=== PATIENT | male | born 1950 | race Caucasian/White ===

== ENCOUNTER 2018-07-24 14:02 | Observation (INO) | payer MEDICARE ==
[~2018-07-24] VITALS: Ht 177.8 cm; Wt 104.3 kg
[~2018-07-24 14:02] MED LIST: ALBIPROI INH; ALBU8HFA2 INH; ASPI325 PO; ASPI81EC PO; ATECHL PO; ATEN50 PO; CHOL10002 PO; CLOP75 PO; COMBIVENT RESPIM4 GM IH; COMBIVENT RESPIM4 GM INH; CYCL10 PO; DICL75ER PO; DILT180ER PO; DOCSEN; DOCU100 PO; DOXA4 PO; FISH1000 PO; FLONASE ALLERG9.9 ML; Fish Oil 10001000 MG PO; GEMF600 PO; HYDACE10B; HYDACE5 PO; IBUP800 PO; ISOMON60ER PO; ISOPTIN PO; LAVAP17G; METO50 PO; METO50ER PO; NITR.4SL SL; Norco 10-325 T1 EACH PO; OMEG1CAP30 PO; OMEGA-3; POTA10T PO; PRAV20 PO; RANI150 PO; STATIN PO; TAMS.4ER PO; TERA5 PO; TIOT18 IH; VERA240ERA PO; WARF5 PO; ZYRTEC10 M2 PO
[2018-07-24 15:19] LABS: BASOPHILS ABSOLUTE AUTO 0.03 K/mm3 (0.00-0.23); BASOPHILS PERCENT AUTO 0 % (0-2); EOSINOPHILS ABSOLUTE AUTO 0.27 K/mm3 (0.00-0.68); EOSINOPHILS PERCENT AUTO 3 % (0-6); Hemoglobin 14.8 g/dL (13.5-17.5); IMMATURE GRAN ABSOLUTE AUTO 0.01 K/mm3 (0.00-0.10); IMMATURE GRAN PERCENT AUTO 0 % (0-1); LYMPHOCYTES ABSOLUTE AUTO 1.18 K/mm3 (0.84-5.20); LYMPHOCYTES PERCENT AUTO 13 % (21-46); MONOCYTES ABSOLUTE AUTO 0.61 K/mm3 (0.16-1.47); MONOCYTES PERCENT AUTO 7 % (4-13); Mean Corpuscular HGB 32.4 pg (26.0-34.0); Mean Corpuscular HGB Conc 33.6 g/dL (31.5-36.5); Mean Corpuscular Volume 96 fL (80-100); NEUTROPHILS ABSOLUTE AUTO 6.68 K/mm3 (1.96-9.15); NEUTROPHILS PERCENT AUTO 76 % (41-73); Platelet Count 161 K/mm3 (150-400); RDW Coefficient Variation 12.4 % (11.7-14.2); RDW Standard Deviation 43.9 fL (35.1-46.3); Red Blood Cell Count 4.57 M/mm3 (4.30-5.90); White Blood Cell Count 8.78 K/mm3 (4.00-11.30)
[2018-07-24 15:38] LABS: Alanine Aminotransfer (ALT/SGP 30 U/L (12-78); Albumin/Globulin Ratio 1.1 (0.8-1.8); Alk Phos 72 U/L (50-136); Anion Gap 6 mmol/L (6-16); Aspartate Aminotrans (AST/SGOT 23 U/L (12-37); Bilirubin, Total 0.8 mg/dL (0.1-1.0); Blood Urea Nitrogen 11 mg/dL (8-24); Bun/Creatinine Ratio 15.9 (12.0-20.0); CO2, Blood 29 mmol/L (21-32); Calcium, Blood 8.9 mg/dL (8.5-10.1); Chloride, Blood 102 mmol/L (98-108); Creatinine, Blood 0.69 mg/dL (0.60-1.20); Globulin, Blood 3.5 g/dL (2.2-4.0); Glomerular Filtration Rate >60 (60-); Glucose, Blood 94 mg/dL (70-99); Potassium, Blood 3.6 mmol/L (3.5-5.5); Sodium, Blood 137 mmol/L (136-145); Total Protein, Blood 7.5 g/dL (6.4-8.2); Troponin I <0.015 ng/mL (0.000-0.040)
[2018-07-24 16:32] LABS: Influenza A Negative (NEGATIVE); Influenza B Negative (NEGATIVE)
[2018-07-24 16:39] LABS: PCO2 Arterial 38.4 mmHg (35-45); PO2 Arterial 64.2 mmHg (80-100); pH Blood Arterial 7.46 (7.35-7.45)
[2018-07-24 17:37] LABS: International Normalized Ratio 4.44
[2018-07-25 05:51] LABS: BASOPHILS PERCENT AUTO 0 % (0-2); EOSINOPHILS PERCENT AUTO 0 % (0-6); Hematocrit 45.2 % (37.0-53.0); Hemoglobin 14.8 g/dL (13.5-17.5); IMMATURE GRAN ABSOLUTE AUTO 0.02 K/mm3 (0.00-0.10); IMMATURE GRAN PERCENT AUTO 0 % (0-1); LYMPHOCYTES ABSOLUTE AUTO 0.66 K/mm3 (0.84-5.20); LYMPHOCYTES PERCENT AUTO 11 % (21-46); MONOCYTES PERCENT AUTO 2 % (4-13); Mean Corpuscular HGB Conc 32.7 g/dL (31.5-36.5); Mean Corpuscular Volume 98 fL (80-100); Mean Platelet Volume 8.7 fL (9.1-12.4); NEUTROPHILS ABSOLUTE AUTO 5.49 K/mm3 (1.96-9.15); NEUTROPHILS PERCENT AUTO 88 % (41-73); Platelet Count 178 K/mm3 (150-400); RDW Coefficient Variation 12.4 % (11.7-14.2); RDW Standard Deviation 44.6 fL (35.1-46.3); Red Blood Cell Count 4.62 M/mm3 (4.30-5.90); White Blood Cell Count 6.27 K/mm3 (4.00-11.30)
[2018-07-25 06:11] LABS: Alanine Aminotransfer (ALT/SGP 26 U/L (12-78); Albumin, Blood 3.8 g/dL (3.4-5.0); Alk Phos 71 U/L (50-136); Anion Gap 7 mmol/L (6-16); Aspartate Aminotrans (AST/SGOT 20 U/L (12-37); Bilirubin, Total 0.5 mg/dL (0.1-1.0); Blood Urea Nitrogen 12 mg/dL (8-24); Bun/Creatinine Ratio 20.1 (12.0-20.0); CO2, Blood 28 mmol/L (21-32); Calcium, Blood 8.9 mg/dL (8.5-10.1); Chloride, Blood 106 mmol/L (98-108); Globulin, Blood 3.8 g/dL (2.2-4.0); Glomerular Filtration Rate >60 (60-); Glucose, Blood 157 mg/dL (70-99); Potassium, Blood 3.9 mmol/L (3.5-5.5); Sodium, Blood 141 mmol/L (136-145); Total Protein, Blood 7.6 g/dL (6.4-8.2)
[2018-07-25] MEDS ORDERED: ALBU90OI INH (11:49)
[2018-07-25] MEDS ORDERED: CEPH500 PO (11:57)
[2018-07-25] MEDS ORDERED: ONDA4ODT SC (11:58)
[2018-07-25] MEDS ORDERED: AZIT250 PO (11:59)
[2018-07-25 12:00] LABS: International Normalized Ratio 2.79; Prothrombin Time Results 27.1 Sec (9.7-11.5)
[2018-07-25] MEDS ORDERED: PRED20 PO (12:00)
== END 2018-07-25 14:13 | disposition home or self-care (01) ==
LOC: ER 14:02 → MEDS 14:03
PROVIDERS: Emergency Medicine; Family Medicine
DX: J96.21 Acute and chronic respiratory failure with hypoxia (principal); J44.1 Chronic obstructive pulmonary disease with (acute) exacerbation; I25.10 Atherosclerotic heart disease of native coronary artery without angina pectoris; I10 Essential (primary) hypertension; S69.92XD Unspecified injury of left wrist, hand and finger(s), subsequent encounter; K21.9 Gastro-esophageal reflux disease without esophagitis; N40.0 Benign prostatic hyperplasia without lower urinary tract symptoms; J44.9 Chronic obstructive pulmonary disease, unspecified; Z88.5 Allergy status to narcotic agent; Z88.8 Allergy status to other drugs, medicaments and biological substances; Z88.0 Allergy status to penicillin; Z79.899 Other long term (current) drug therapy; Z79.01 Long term (current) use of anticoagulants; Z95.1 Presence of aortocoronary bypass graft; Z95.2 Presence of prosthetic heart valve; Z87.891 Personal history of nicotine dependence
CPT/HCPCS: 36415; 36600; 71046; 71260; 76882; 80053; 82803; 83880; 84484; 85025; 85610; 87804; 93005; 93010; 94640; 94644; 94760; 96374; 99285-25; J0456; J0696; J2920; J2930; J7050; Q9967

== ENCOUNTER 2018-12-24 08:55 | Day surgery (SDC) | payer OTHER ==
[~2018-12-24] VITALS: Ht 177.8 cm; Wt 106.1 kg
[~2018-12-24 08:55] MED LIST changes: +ALBU90OI INH; +AMMONIUM LACTATE1 ML TOP; +ARTIFICIAL TEAR15 ML BOTHEYES; +ASPI325EC PO; +AZIT250 PO; +CEPH500 PO; +FISH OIL 1,0001 EAC1 PO; +Flonase 0.05% N16 GM; +Isosorbide Mono60 MG PO; +Nitrostat0.4 MG SL; +ONDA4ODT SC; +POTCHL20ER PO; +PRED20 PO; +Ranitidine HCl150 M1 PO; +VERA180ERB PO; +VITAMIN D31000 UNIT PO; +WARF7.5 PO; +ZYRTEC10 M1 PO
== END 2018-12-24 10:42 | disposition home or self-care (01) ==
LOC: ORSCSDS 08:55
PROVIDERS: Internal Medicine Gastroenterology
PROC: 0DBN8ZX Excision of Sigmoid Colon, Via Natural or Artificial Opening Endoscopic, Diagnostic (ICD-10-PCS; principal; 2018-12-24 10:00)
PROC: 0DBL8ZX Excision of Transverse Colon, Via Natural or Artificial Opening Endoscopic, Diagnostic (ICD-10-PCS; principal; 2018-12-24 10:00)
DX: Z12.11 Encounter for screening for malignant neoplasm of colon (principal); Z86.010 Personal history of colon polyps; D12.3 Benign neoplasm of transverse colon; D12.5 Benign neoplasm of sigmoid colon; K57.30 Diverticulosis of large intestine without perforation or abscess without bleeding; K64.8 Other hemorrhoids; I25.10 Atherosclerotic heart disease of native coronary artery without angina pectoris; I48.91 Unspecified atrial fibrillation; Z79.01 Long term (current) use of anticoagulants; Z79.899 Other long term (current) drug therapy; G47.33 Obstructive sleep apnea (adult) (pediatric); J44.9 Chronic obstructive pulmonary disease, unspecified; Z87.891 Personal history of nicotine dependence; E66.9 Obesity, unspecified; Z68.34 Body mass index [BMI] 34.0-34.9, adult; Z79.82 Long term (current) use of aspirin
CPT/HCPCS: 88305; J7120

== ENCOUNTER 2020-03-02 09:55 | Emergency (ER) | payer OTHER ==
[~2020-03-02] VITALS: Ht 177.8 cm; Wt 99.8 kg
[2020-03-02] MEDS ORDERED: ZYRTEC10 M2 PO (10:23)
[2020-03-02 10:24] LABS: BASOPHILS ABSOLUTE AUTO 0.03 K/mm3 (0.00-0.23); BASOPHILS PERCENT AUTO 0 % (0-2); EOSINOPHILS ABSOLUTE AUTO 0.16 K/mm3 (0.00-0.68); EOSINOPHILS PERCENT AUTO 2 % (0-6); Hematocrit 42.2 % (37.0-53.0); Hemoglobin 13.9 g/dL (13.5-17.5); IMMATURE GRAN ABSOLUTE AUTO 0.02 K/mm3 (0.00-0.10); IMMATURE GRAN PERCENT AUTO 0 % (0-1); LYMPHOCYTES ABSOLUTE AUTO 1.64 K/mm3 (0.84-5.20); LYMPHOCYTES PERCENT AUTO 22 % (21-46); MONOCYTES ABSOLUTE AUTO 0.45 K/mm3 (0.16-1.47); MONOCYTES PERCENT AUTO 6 % (4-13); Mean Corpuscular HGB 32.2 pg (26.0-34.0); Mean Corpuscular HGB Conc 32.9 g/dL (31.5-36.5); Mean Corpuscular Volume 98 fL (80-100); Mean Platelet Volume 8.7 fL (9.1-12.4); NEUTROPHILS ABSOLUTE AUTO 5.14 K/mm3 (1.96-9.15); NEUTROPHILS PERCENT AUTO 69 % (41-73); Platelet Count 168 K/mm3 (150-400); RDW Coefficient Variation 12.5 % (11.7-14.2); RDW Standard Deviation 44.9 fL (35.1-46.3); Red Blood Cell Count 4.32 M/mm3 (4.30-5.90); White Blood Cell Count 7.44 K/mm3 (4.00-11.30)
[2020-03-02] MEDS ORDERED: Norco 10-325 T1 EACH PO (10:24)
[2020-03-02] MEDS ORDERED: TAMS.4ER PO (10:24)
[2020-03-02] MEDS ORDERED: WARF5 PO (10:26)
[2020-03-02] MEDS ORDERED: DOCU100 PO (10:27)
[2020-03-02] MEDS ORDERED: Duoneb 2.5-0.5 M3 ML (10:27)
[2020-03-02] MEDS ORDERED: Fish Oil Conc1000 MG PO (10:28)
[2020-03-02] MEDS ORDERED: MONT10T PO (10:29)
[2020-03-02] MEDS ORDERED: METO25 PO (10:29)
[2020-03-02] MEDS ORDERED: Flonase 0.05% N16 GM (10:29)
[2020-03-02] MEDS ORDERED: NITR.4SL SL (10:29)
[2020-03-02 10:30] LABS: International Normalized Ratio 2.35
[2020-03-02] MEDS ORDERED: FAMO40 PO (10:30)
[2020-03-02] MEDS ORDERED: NEOPOLBACB TOP (10:30)
[2020-03-02] MEDS ORDERED: AMMONIUM LACTATE (10:31)
[2020-03-02] MEDS ORDERED: ISOMON20 PO (10:31)
[2020-03-02] MEDS ORDERED: VITAMIN D31000 UNI1 PO (10:34)
[2020-03-02] MEDS ORDERED: VERA180ERB PO (10:35)
[2020-03-02] MEDS ORDERED: SYSTANE GEL10 GM BOTHEYES (10:35)
[2020-03-02] MEDS ORDERED: [UNRECOGNIZED DRUG - CODE] (10:35)
[2020-03-02 10:37] LABS: Alanine Aminotransfer (ALT/SGP 31 U/L (12-78); Albumin, Blood 3.7 g/dL (3.4-5.0); Albumin/Globulin Ratio 1.2 (0.8-1.8); Alk Phos 59 U/L (50-136); Anion Gap 9 mmol/L (6-16); Aspartate Aminotrans (AST/SGOT 23 U/L (12-37); Bilirubin, Total 0.3 mg/dL (0.1-1.0); Blood Urea Nitrogen 16 mg/dL (8-24); Bun/Creatinine Ratio 20.9 (12.0-20.0); CO2, Blood 26 mmol/L (21-32); Calcium, Blood 8.6 mg/dL (8.5-10.1); Chloride, Blood 105 mmol/L (98-108); Creatinine, Blood 0.76 mg/dL (0.60-1.20); Globulin, Blood 3.2 g/dL (2.2-4.0); Glomerular Filtration Rate >60 (60-); Glucose, Blood 125 mg/dL (70-99); Potassium, Blood 3.9 mmol/L (3.5-5.5); Sodium, Blood 140 mmol/L (136-145); Total Protein, Blood 6.9 g/dL (6.4-8.2); Troponin I <0.015 ng/mL (0.000-0.040)
== END 2020-03-02 15:03 | disposition home or self-care (01) ==
LOC: ER 09:55
PROVIDERS: Emergency Medicine
DX: R07.9 Chest pain, unspecified (principal); R55 Syncope and collapse; I25.2 Old myocardial infarction; I10 Essential (primary) hypertension; Z87.891 Personal history of nicotine dependence
CPT/HCPCS: 71045; 80053; 83690; 84484; 85025; 85610; 93005; 93010; 99285-25; A9270

== ENCOUNTER 2022-04-22 12:51 | Emergency (ER) | payer OTHER ==
[~2022-04-22] VITALS: Ht 177.8 cm; Wt 113.4 kg
[~2022-04-22 12:51] MED LIST changes: +AMMONIUM LACTATE; +Duoneb 2.5-0.5 M3 ML; +FAMO40 PO; +Fish Oil Conc1000 MG PO; +ISOMON20 PO; +METO25 PO; +MONT10T PO; +NEOPOLBACB TOP; +SYSTANE GEL10 GM BOTHEYES; +VITAMIN D31000 UNI1 PO; +[UNRECOGNIZED DRUG - CODE]
[2022-04-22 13:39] LABS: BASOPHILS ABSOLUTE AUTO 0.03 K/mm3 (0.00-0.23); BASOPHILS PERCENT AUTO 1 % (0-2); EOSINOPHILS ABSOLUTE AUTO 0.29 K/mm3 (0.00-0.68); EOSINOPHILS PERCENT AUTO 5 % (0-6); Hematocrit 42.3 % (37.0-53.0); Hemoglobin 14.2 g/dL (13.5-17.5); IMMATURE GRAN ABSOLUTE AUTO 0.02 K/mm3 (0.00-0.10); IMMATURE GRAN PERCENT AUTO 0 % (0-1); LYMPHOCYTES PERCENT AUTO 19 % (21-46); MONOCYTES ABSOLUTE AUTO 0.56 K/mm3 (0.16-1.47); MONOCYTES PERCENT AUTO 9 % (4-13); Mean Corpuscular HGB 33.2 pg (26.0-34.0); Mean Corpuscular HGB Conc 33.6 g/dL (31.5-36.5); Mean Corpuscular Volume 99 fL (80-100); Mean Platelet Volume 8.9 fL (9.1-12.4); NEUTROPHILS ABSOLUTE AUTO 4.34 K/mm3 (1.96-9.15); NEUTROPHILS PERCENT AUTO 67 % (41-73); Platelet Count 145 K/mm3 (150-400); RDW Coefficient Variation 13.1 % (11.7-14.2); RDW Standard Deviation 46.9 fL (35.1-46.3); Red Blood Cell Count 4.28 M/mm3 (4.30-5.90); White Blood Cell Count 6.44 K/mm3 (4.00-11.30)
[2022-04-22 13:40] LABS: Albumin, Blood 3.6 g/dL (3.4-5.0); Albumin/Globulin Ratio 1.1 (0.8-1.8); Bilirubin, Total 0.5 mg/dL (0.1-1.0); Bun/Creatinine Ratio 15.4 (12.0-20.0); Calcium, Blood 9.2 mg/dL (8.5-10.1); Creatinine, Blood 0.65 mg/dL (0.60-1.20); Globulin, Blood 3.3 g/dL (2.2-4.0); Potassium, Blood 3.9 mmol/L (3.5-5.5); Total Protein, Blood 6.9 g/dL (6.4-8.2)
[2022-04-22] MEDS ORDERED: PRED10 PO (14:35)
== END 2022-04-22 14:51 | disposition home or self-care (01) ==
LOC: ER 12:51
PROVIDERS: Emergency Medicine
DX: R21 Rash and other nonspecific skin eruption (principal); I25.10 Atherosclerotic heart disease of native coronary artery without angina pectoris; I10 Essential (primary) hypertension; K21.9 Gastro-esophageal reflux disease without esophagitis; I25.2 Old myocardial infarction; J44.9 Chronic obstructive pulmonary disease, unspecified; Z79.01 Long term (current) use of anticoagulants; Z95.1 Presence of aortocoronary bypass graft; Z79.899 Other long term (current) drug therapy; Z88.8 Allergy status to other drugs, medicaments and biological substances; Z88.6 Allergy status to analgesic agent; Z88.5 Allergy status to narcotic agent; Z88.0 Allergy status to penicillin; Z91.013 Allergy to seafood
CPT/HCPCS: 80053; 85025; J7512

== ENCOUNTER 2022-06-23 11:19 | Observation (INO) | payer OTHER ==
[~2022-06-23] VITALS: Ht 182.9 cm; Wt 118.3 kg
[~2022-06-23 11:19] MED LIST changes: +PRED10 PO
[2022-06-23 11:50] LABS: BASOPHILS ABSOLUTE AUTO 0.03 K/mm3 (0.00-0.23); BASOPHILS PERCENT AUTO 0 % (0-2); EOSINOPHILS PERCENT AUTO 3 % (0-6); Hematocrit 43.9 % (37.0-53.0); Hemoglobin 14.2 g/dL (13.5-17.5); IMMATURE GRAN ABSOLUTE AUTO 0.02 K/mm3 (0.00-0.10); IMMATURE GRAN PERCENT AUTO 0 % (0-1); LYMPHOCYTES ABSOLUTE AUTO 1.47 K/mm3 (0.84-5.20); LYMPHOCYTES PERCENT AUTO 19 % (21-46); MONOCYTES ABSOLUTE AUTO 0.63 K/mm3 (0.16-1.47); MONOCYTES PERCENT AUTO 8 % (4-13); Mean Corpuscular HGB 31.9 pg (26.0-34.0); Mean Corpuscular HGB Conc 32.3 g/dL (31.5-36.5); Mean Corpuscular Volume 99 fL (80-100); Mean Platelet Volume 8.7 fL (9.1-12.4); NEUTROPHILS ABSOLUTE AUTO 5.35 K/mm3 (1.96-9.15); NEUTROPHILS PERCENT AUTO 69 % (41-73); Platelet Count 147 K/mm3 (150-400); RDW Coefficient Variation 13.1 % (11.7-14.2); RDW Standard Deviation 47.4 fL (35.1-46.3); Red Blood Cell Count 4.45 M/mm3 (4.30-5.90)
[2022-06-23 12:11] LABS: Albumin, Blood 3.5 g/dL (3.4-5.0); Bilirubin, Total 0.4 mg/dL (0.1-1.0); Bun/Creatinine Ratio 17.3 (12.0-20.0); Calcium, Blood 9.2 mg/dL (8.5-10.1); Creatinine, Blood 0.81 mg/dL (0.60-1.20); Globulin, Blood 3.4 g/dL (2.2-4.0); Potassium, Blood 4.1 mmol/L (3.5-5.5); Total Protein, Blood 6.9 g/dL (6.4-8.2)
[2022-06-23 14:15] LABS: International Normalized Ratio 3.94; Prothrombin Time Results 37.8 Sec (9.7-11.5)
[2022-06-23] MEDS ORDERED: LORA10ER PO (17:47)
[2022-06-23] MEDS ORDERED: CYCL10 PO (17:48)
[2022-06-23] MEDS ORDERED: COMBIVENT RESPIM4 G1 INH (17:50)
--- NOTE | 2022-06-23 17:52 | NUR ---
REPORT RECEIVED FROM ED PARKS IN ER. PT TRANSFERRED TO 334 VIA . PT A/O X 4 ON ARRIVAL AND T IND WITH CANE TO BED. PT PLEASANT AND COOPERATIVE. DENIES CP AT THIS TIME. SOMEWHAT SOB WITH VERBALIZING. PT DENIES PAIN/NAUSEA AT THIS TIME. TELE PLACED AND NSR AT 70 AT THIS TIME. BED IN LOW POSITION, CALL LIGHT IN REACH.
--- NOTE | 2022-06-24 04:54 | NUR ---
SHIFT SUMMARY A/OX4, IND IN ROOM. DENIES CHEST PAIN/PRESSURE. TELE SR IN THE 70S. PT IS CAREGIVER TO WHO HAS BEEN BEDSIDE T/O SHIFT. NO ACUTE CHANGES AT THIS TIME. BED IN LOWEST POSITION WITH CALL LIGHT IN REACH. WILL CONTINUE TO MONITOR AND REPORT TO ONCOMING RN.
[2022-06-24 05:26] LABS: BASOPHILS ABSOLUTE AUTO 0.03 K/mm3 (0.00-0.23); BASOPHILS PERCENT AUTO 1 % (0-2); EOSINOPHILS ABSOLUTE AUTO 0.27 K/mm3 (0.00-0.68); EOSINOPHILS PERCENT AUTO 5 % (0-6); Hematocrit 41.2 % (37.0-53.0); Hemoglobin 13.4 g/dL (13.5-17.5); IMMATURE GRAN ABSOLUTE AUTO 0.02 K/mm3 (0.00-0.10); IMMATURE GRAN PERCENT AUTO 0 % (0-1); LYMPHOCYTES ABSOLUTE AUTO 1.51 K/mm3 (0.84-5.20); LYMPHOCYTES PERCENT AUTO 27 % (21-46); MONOCYTES ABSOLUTE AUTO 0.44 K/mm3 (0.16-1.47); MONOCYTES PERCENT AUTO 8 % (4-13); Mean Corpuscular HGB 32.2 pg (26.0-34.0); Mean Corpuscular HGB Conc 32.5 g/dL (31.5-36.5); Mean Corpuscular Volume 99 fL (80-100); Mean Platelet Volume 8.8 fL (9.1-12.4); NEUTROPHILS ABSOLUTE AUTO 3.26 K/mm3 (1.96-9.15); NEUTROPHILS PERCENT AUTO 59 % (41-73); Platelet Count 139 K/mm3 (150-400); RDW Coefficient Variation 12.9 % (11.7-14.2); RDW Standard Deviation 47.4 fL (35.1-46.3); Red Blood Cell Count 4.16 M/mm3 (4.30-5.90); White Blood Cell Count 5.53 K/mm3 (4.00-11.30)
[2022-06-24 05:41] LABS: Prothrombin Time Results 29.3 Sec (9.7-11.5)
[2022-06-24 05:48] LABS: Anion Gap 8 mmol/L (6-16); Blood Urea Nitrogen 12 mg/dL (8-24); Bun/Creatinine Ratio 17.6 (12.0-20.0); CO2, Blood 26 mmol/L (21-32); Calcium, Blood 8.4 mg/dL (8.5-10.1); Chloride, Blood 107 mmol/L (98-108); Creatinine, Blood 0.68 mg/dL (0.60-1.20); Glomerular Filtration Rate 98 (60-); Glucose, Blood 116 mg/dL (70-99); Phosphorus, Blood 3.5 mg/dL (2.5-4.9); Potassium, Blood 3.8 mmol/L (3.5-5.5); Sodium, Blood 141 mmol/L (136-145)
[2022-06-24] MEDS ORDERED: CLOP75 PO (10:39)
--- NOTE | 2022-06-24 15:25 | NUR ---
discharge notes: pt discharged from tele. pt educated on following up with [facility], primary pcp, and establishing as a new patient with [facility]. pt educated on angina pain, heart healthy diet, and CVD. pt iv was removed with increased bleeding due to taking coumadin. pt was escorted with wheelchair and transported by [facility] to the [place].
== END 2022-06-24 14:37 | disposition home or self-care (01) ==
LOC: ER 11:19 → MEDS 11:20
PROVIDERS: Student in an Organized Health Care Education/Training Program; ADMIT Internal Medicine
DX: I25.118 Atherosclerotic heart disease of native coronary artery with other forms of angina pectoris (principal); J44.9 Chronic obstructive pulmonary disease, unspecified; I10 Essential (primary) hypertension; K21.9 Gastro-esophageal reflux disease without esophagitis; Z87.891 Personal history of nicotine dependence; Z95.1 Presence of aortocoronary bypass graft; Z91.013 Allergy to seafood; Z95.2 Presence of prosthetic heart valve; Z88.0 Allergy status to penicillin; Z88.5 Allergy status to narcotic agent; Z88.8 Allergy status to other drugs, medicaments and biological substances; Z79.01 Long term (current) use of anticoagulants; Z79.899 Other long term (current) drug therapy
CPT/HCPCS: 36415; 71046; 80053; 80069; 83690; 84484; 85025; 85610; 93005; 93010; 94667; 98960; A9270; G0378

== ENCOUNTER 2022-09-25 17:12 | Inpatient (IN) | payer OTHER ==
[~2022-09-25] VITALS: Ht 177.8 cm; Wt 116.8 kg
[~2022-09-25 17:12] MED LIST changes: +COMBIVENT RESPIM4 G1 INH; -ISOMON20 PO; +Isosorbide Mono30 MG PO; +LORA10ER PO
[2022-09-25 18:03] LABS: BASOPHILS ABSOLUTE AUTO 0.02 K/mm3 (0.00-0.23); BASOPHILS PERCENT AUTO 0 % (0-2); EOSINOPHILS ABSOLUTE AUTO 0.18 K/mm3 (0.00-0.68); EOSINOPHILS PERCENT AUTO 3 % (0-6); Hematocrit 42.8 % (37.0-53.0); Hemoglobin 14.7 g/dL (13.5-17.5); IMMATURE GRAN ABSOLUTE AUTO 0.02 K/mm3 (0.00-0.10); IMMATURE GRAN PERCENT AUTO 0 % (0-1); LYMPHOCYTES ABSOLUTE AUTO 1.69 K/mm3 (0.84-5.20); LYMPHOCYTES PERCENT AUTO 24 % (21-46); MONOCYTES ABSOLUTE AUTO 0.65 K/mm3 (0.16-1.47); MONOCYTES PERCENT AUTO 9 % (4-13); Mean Corpuscular HGB 32.3 pg (26.0-34.0); Mean Corpuscular HGB Conc 34.3 g/dL (31.5-36.5); Mean Corpuscular Volume 94 fL (80-100); Mean Platelet Volume 8.6 fL (9.1-12.4); NEUTROPHILS ABSOLUTE AUTO 4.43 K/mm3 (1.96-9.15); NEUTROPHILS PERCENT AUTO 63 % (41-73); Platelet Count 174 K/mm3 (150-400); RDW Coefficient Variation 13.3 % (11.7-14.2); RDW Standard Deviation 46.5 fL (35.1-46.3); Red Blood Cell Count 4.55 M/mm3 (4.30-5.90); White Blood Cell Count 6.99 K/mm3 (4.00-11.30)
[2022-09-25 18:26] LABS: Albumin, Blood 3.6 g/dL (3.4-5.0); Albumin/Globulin Ratio 1.1 (0.8-1.8); Bilirubin, Total 0.3 mg/dL (0.1-1.0); Bun/Creatinine Ratio 18.9 (12.0-20.0); Calcium, Blood 8.6 mg/dL (8.5-10.1); Creatinine, Blood 0.74 mg/dL (0.60-1.20); Globulin, Blood 3.2 g/dL (2.2-4.0); Potassium, Blood 3.7 mmol/L (3.5-5.5); Total Protein, Blood 6.8 g/dL (6.4-8.2)
[2022-09-25] MEDS ORDERED: DILT120 PO (18:47)
[2022-09-25] MEDS ORDERED: OMEP20ER PO (18:47)
[2022-09-25 19:43] LABS: International Normalized Ratio 1.48; Prothrombin Time Results 15.1 Sec (9.7-11.5)
--- NOTE | 2022-09-26 03:30 | NUR ---
SHIFT SUMMARY NOC PT ADMIT FROM ED WITH ANGINA AT REST. PT LAST TROPONIN WAS 51. PT BP HAS BEEN ELEVATED BUT IS CONSIDERED BASELINE. PT ATPP WAS 41.5. BNP WAS 269. PT HAS IV IN R WRIST THAT IS INFUSING HEPARIN DRIP AT 27.6ML/HR. PT A/OX4. INDEPENDENT IN ROOM AND HAS CANE FOR ADDITIONAL SUPPORT IF NEEDED. PT IS ON TELE RUNNING SR WITH PROLONGED QT INTERVAL OF 0.51 AND HR OF 70BPM. PT HAS BLLE EDEMA 2+ AND HAS GAINED 17LBS IN LAST 2 MONTHS. IS [facility]. PT HAS EXTENSIVE CARDIAC HX (CHECK NOTES). PT IS CONTINENT GI/. PT IS CURRENTLY RESTING WITH BED RAILS UP, BED IN LOWEST POSITION, AND CALL LIGHT WITHIN REACH.
[2022-09-26 04:44] LABS: Hematocrit 42.2 % (37.0-53.0); Hemoglobin 14.1 g/dL (13.5-17.5); Mean Platelet Volume 8.6 fL (9.1-12.4); Platelet Count 155 K/mm3 (150-400)
[2022-09-26 05:26] LABS: Albumin, Blood 3.3 g/dL (3.4-5.0); Albumin/Globulin Ratio 1.1 (0.8-1.8); Bilirubin, Total 0.4 mg/dL (0.1-1.0); Bun/Creatinine Ratio 19.1 (12.0-20.0); Calcium, Blood 8.4 mg/dL (8.5-10.1); Creatinine, Blood 0.68 mg/dL (0.60-1.20); Potassium, Blood 3.5 mmol/L (3.5-5.5); Total Protein, Blood 6.3 g/dL (6.4-8.2)
[2022-09-26 14:00] LABS: International Normalized Ratio 1.27; Prothrombin Time Results 13.1 Sec (9.7-11.5)
--- NOTE | 2022-09-26 18:47 | NUR ---
SHIFT SUMMARY PT A/O X4; PLEASANT AND COOPERATIVE WITH CARE. NO REPORTS OF CP THIS SHIFT. PT REMAINS ON HEPARIN DRIP AT THIS TIME. PT NPO AFTER MIDNIGHT IN CASE OF ANGIOGRAM. ANGIOGRAM VS GOING HOME ON ANTICOAGULANTS AND FOLLOWING UP OUTPATIENT. VSS.
--- NOTE | 2022-09-27 04:43 | NUR ---
SHIFT SUMMARY; NO ACUTE CHANGES OVERNIGHT. PT RESTED IN BED ALL NIGHT, NO SOB OR CHEST PAIN. PT USED BED SIDE URINAL THROUGHOUT THE NIGHT. PT WITH HEPARIN DRIP CURRENTLY RUNNING AT 27.6ML/HR. PT CURRENTLY RESTING IN BED WITH THE BED IN THE LOWEST POSITION AND THE CALL LIGHT AT BEDSIDE. STRESS TEST THIS AM WITH POSSIBLE ANGIOGRAM DEPENDING ON RESULTS.
[2022-09-27 05:06] LABS: Hematocrit 42.4 % (37.0-53.0); Hemoglobin 14.5 g/dL (13.5-17.5); Mean Corpuscular HGB Conc 34.2 g/dL (31.5-36.5); Mean Corpuscular Volume 96 fL (80-100); Mean Platelet Volume 8.5 fL (9.1-12.4); Platelet Count 156 K/mm3 (150-400); RDW Coefficient Variation 13.3 % (11.7-14.2); RDW Standard Deviation 46.8 fL (35.1-46.3); White Blood Cell Count 6.58 K/mm3 (4.00-11.30)
[2022-09-27 05:23] LABS: Anti-Xa UFH, PHA Monitoring 0.29 IU/mL; International Normalized Ratio 1.23; Prothrombin Time Results 12.7 Sec (9.7-11.5)
[2022-09-27 05:37] LABS: Albumin, Blood 3.3 g/dL (3.4-5.0); Anion Gap 5 mmol/L (6-16); Blood Urea Nitrogen 14 mg/dL (8-24); Bun/Creatinine Ratio 18.8 (12.0-20.0); CHOL/HDL RATIO 7.5; CO2, Blood 29 mmol/L (21-32); Calcium, Blood 8.6 mg/dL (8.5-10.1); Chloride, Blood 106 mmol/L (98-108); Cholesterol 233 mg/dL (50-200); Creatinine, Blood 0.74 mg/dL (0.60-1.20); Glomerular Filtration Rate 95 (60-); Glucose, Blood 116 mg/dL (70-99); HDL Cholesterol 31 mg/dL (>39); LDL/HDL RATIO 4.5; Low Density Lipoprotein Chol 139 mg/dL (0-110); Phosphorus, Blood 3.1 mg/dL (2.5-4.9); Potassium, Blood 3.6 mmol/L (3.5-5.5); Sodium, Blood 140 mmol/L (136-145); Triglycerides 313 mg/dL (30-160); Very Low Density Lipoprot Chol 62 mg/dL (6-32)
--- NOTE | 2022-09-27 12:00 | NUR ---
SPOKE TO DR. WEBBER BY PHONE AT ~ 1045, ASKED FOR CLARIFICATION OF PLAN FOR PT. HE AMBULATED ~ 75 FEET IN HALLWAY WITHOUT EXERTIONAL CP OR SOB, DENIED DIZZINESS. HAS NO ACTIVE ORDER FOR A STRESS TEST TODAY. PROVIDER STATED OK TO D/C HEPARIN GTT, OK TO D/C FROM HER PERSPECTIVE BUT PT NEEDS TO F/U WITH CARDIOLOGY AT APPOINTMENT ON 10/07/22.
[2022-09-27] MEDS ORDERED: Aspir 8181 MG PO (13:07)
[2022-09-27] MEDS ORDERED: ATOR80 PO (13:07)
[2022-09-27] MEDS ORDERED: LOSA25 PO (13:08)
[2022-09-27] MEDS ORDERED: FURO20 PO (13:10)
[2022-09-27] MEDS ORDERED: METO25 PO (13:10)
--- NOTE | 2022-09-27 13:32 | NUR ---
DISCHARGE NOTE PT DISCHARGED TO HOME VIA TAXI TODAY AROUND 1330. IV WAS REMOVED AND IT WAS ALL INTACT. HE WAS PROVIDED DISCHARGE EDUCATIONS AND MEDICATIONS WERE FAXED TO THE PHARMACY OF HIS CHOICE. ALL OF HIS BELONGINGS WERE ACCOUNTED FOR AND GIVEN TO HIM. TAKEN TO HIS TAXI BY WHEELCHAIR.
== END 2022-09-27 13:25 | disposition home or self-care (01) | DRG 303 ==
LOC: ER 17:12 → MEDS 17:13
PROVIDERS: Family Medicine; Internal Medicine; Physician Assistant; ADMIT Student in an Organized Health Care Education/Training Program
DX: I25.110 Atherosclerotic heart disease of native coronary artery with unstable angina pectoris (principal); I50.32 Chronic diastolic (congestive) heart failure; Z79.01 Long term (current) use of anticoagulants; Z95.2 Presence of prosthetic heart valve; I48.0 Paroxysmal atrial fibrillation; J44.9 Chronic obstructive pulmonary disease, unspecified; K21.9 Gastro-esophageal reflux disease without esophagitis; N40.0 Benign prostatic hyperplasia without lower urinary tract symptoms; Z95.1 Presence of aortocoronary bypass graft; Z95.5 Presence of coronary angioplasty implant and graft; Z87.891 Personal history of nicotine dependence; Z88.8 Allergy status to other drugs, medicaments and biological substances; Z88.0 Allergy status to penicillin; Z79.899 Other long term (current) drug therapy; Z79.02 Long term (current) use of antithrombotics/antiplatelets; Z23 Encounter for immunization
CPT/HCPCS: 36415; 71045; 80053; 80061; 80069; 83880; 84484; 85014; 85018; 85025; 85027; 85049; 85520; 85610; 90686; 93005; 93010; 93306; 96372; 96374; 96375; 96376; A9270; C9113; G0008; G0378; J1644; J1940

== ENCOUNTER 2022-12-17 10:49 | Observation (INO) | payer OTHER ==
[~2022-12-17] VITALS: Ht 177.8 cm; Wt 120.2 kg
[~2022-12-17 10:49] MED LIST changes: +ATOR80 PO; +Aspir 8181 MG PO; +COMBIVENT RESPIM4 G1; +DILT120 PO; +FISH OIL 1,2001 EAC7; +FURO20 PO; +LOSA25 PO; +OMEP20ER PO; +VERA180ER PO
[2022-12-17 11:21] LABS: BASOPHILS ABSOLUTE AUTO 0.04 K/mm3 (0.00-0.23); BASOPHILS PERCENT AUTO 1 % (0-2); EOSINOPHILS ABSOLUTE AUTO 0.16 K/mm3 (0.00-0.68); EOSINOPHILS PERCENT AUTO 2 % (0-6); Hematocrit 39.9 % (37.0-53.0); IMMATURE GRAN ABSOLUTE AUTO 0.03 K/mm3 (0.00-0.10); IMMATURE GRAN PERCENT AUTO 0 % (0-1); LYMPHOCYTES ABSOLUTE AUTO 1.89 K/mm3 (0.84-5.20); LYMPHOCYTES PERCENT AUTO 22 % (21-46); MONOCYTES ABSOLUTE AUTO 0.73 K/mm3 (0.16-1.47); MONOCYTES PERCENT AUTO 8 % (4-13); Mean Corpuscular HGB 32.8 pg (26.0-34.0); Mean Corpuscular HGB Conc 35.1 g/dL (31.5-36.5); Mean Corpuscular Volume 93 fL (80-100); Mean Platelet Volume 8.5 fL (9.1-12.4); NEUTROPHILS ABSOLUTE AUTO 5.93 K/mm3 (1.96-9.15); NEUTROPHILS PERCENT AUTO 68 % (41-73); Platelet Count 167 K/mm3 (150-400); RDW Coefficient Variation 13.1 % (11.7-14.2); RDW Standard Deviation 44.7 fL (35.1-46.3); Red Blood Cell Count 4.27 M/mm3 (4.30-5.90); White Blood Cell Count 8.78 K/mm3 (4.00-11.30)
[2022-12-17 11:53] LABS: Albumin, Blood 3.8 g/dL (3.4-5.0); Albumin/Globulin Ratio 1.2 (0.8-1.8); Bilirubin, Total 0.9 mg/dL (0.1-1.0); Bun/Creatinine Ratio 24.6 (12.0-20.0); Calcium, Blood 8.7 mg/dL (8.5-10.1); Creatinine, Blood 0.61 mg/dL (0.60-1.20); Globulin, Blood 3.3 g/dL (2.2-4.0); Potassium, Blood 3.4 mmol/L (3.5-5.5); Total Protein, Blood 7.1 g/dL (6.4-8.2)
[2022-12-17 12:46] LABS: International Normalized Ratio >10.00; Prothrombin Time Results >90.0 Sec (9.7-11.5)
--- NOTE | 2022-12-17 15:41 | NUR ---
ADMISSION: REPORT RECEIVED FROM ED RN. PT TO UNIT AT 1530. A/O, VSS. PT ABLE TO AMBULATE TO BED FROM NGUYEN BERUMEN. R ARM BRUISING VISIBLE. R RADIAL PULSE +2, PT DENIES N/T. DECREASED ROM IN R WRIST AND PAIN. MEDICATED PER EMAR. 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 BED ALARM SET FOR SAFETY.
--- NOTE | 2022-12-17 19:21 | NUR ---
ASSUMED CARE OF PATIENT AT 1700. ALERT AND ORIENTED IN ROOM. RESTING IN BED. BED ALARM ON. RIGHT ARM SWOLLEN, TIGHT, BRUISED FROM ELBOW TO FINGERS. PAINFUL, MEDICATED PER EMAR. LIMITED RANGE OF MOTION. WARM TO TOUCH. BRISK CAP REFILL, RADIAL PULSE PRESENT. REGULAR DIET ORDERED. PLAN TO RECHECK COAGULATION AT 2100. REPORT GIVEN TO RETAIL PRODUCT DEMO SPECIALIST RN.
[2022-12-17 21:50] LABS: International Normalized Ratio 2.97
[2022-12-18 04:31] LABS: Hematocrit 36.1 % (37.0-53.0); Hemoglobin 12.3 g/dL (13.5-17.5); Mean Corpuscular HGB 32.3 pg (26.0-34.0); Mean Corpuscular HGB Conc 34.1 g/dL (31.5-36.5); Mean Corpuscular Volume 95 fL (80-100); Mean Platelet Volume 8.7 fL (9.1-12.4); Platelet Count 129 K/mm3 (150-400); RDW Coefficient Variation 13.2 % (11.7-14.2); Red Blood Cell Count 3.81 M/mm3 (4.30-5.90); White Blood Cell Count 6.33 K/mm3 (4.00-11.30)
--- NOTE | 2022-12-18 04:36 | NUR ---
VSS. PT SLEPT WELL T/O THE NIGHT. CIRCULATION AND SENSATION REMAINS INTACT IN RUE. SWELLING IS NOTED TO HAVE DECREASED, PT IS ABLE TO MAKE A FIST AND MOBILIZE WRIST WITH MINIMAL DIFFICULTY. PT MEDICATED FOR PAIN AT BEGINNING OF SHIFT, BUT HAS NOT REQUIRED ANY SINCE. PT VOIDING W/O DIFFICULTY. PLAN FOR PT TO BE MONITORED T/O THE DAY, D/C WHEN LABS ARE STABLE AND RUE RETURNS TO BASELINE. THE PATIENT IS CURRENTLY SLEEPING, IN NO DISTRESS, CALL LIGHT IN REACH
[2022-12-18 04:41] LABS: International Normalized Ratio 2.01
[2022-12-18 05:38] LABS: Prothrombin Time Results 20.2 Sec (9.7-11.5)
--- NOTE | 2022-12-18 09:45 | NUR ---
Advance Directive record request from ED RN on 12/16- [facility], no [facility] or [facility] on file for this patient.
--- NOTE | 2022-12-18 13:03 | NUR ---
DISCHARGE SUMMARY PATIENT ALERT AND ORIENTED. SBA IN ROOM WITH CANE. UP TO CHAIR FOR BREAKFAST, TOLERATING REGULAR DIET AND LIQUIDS. VOIDING WELL. RIGHT ARM SWELLING DECREASED SINCE YESTERDAY 12/17/22. PAIN MANAGED WITH PO MEDS. RANGE OF MOTION OF R WRIST AND FINGERS IMPROVED. SEEN BY DR TORRES AND DR SINGH. LARGE HEMATOMA AND BRUISING UNCHANGED TO RIGHT ARM. DISCHARGE ORDER GIVEN. DISCHARGE EDUCATION GIVEN ON S/S OF COMPARTMENT SYNDROME. WHEN TO FOLLOW UP FOR PT/INR AND PCP AT IN. AND TO F/U WITH [facility]. DISCUSSED DOSE OF WARFARIN TONIGHT. IV DC'D WNL.
== END 2022-12-18 12:41 | disposition home or self-care (01) ==
LOC: ER 10:49 → SURS 14:12
PROVIDERS: Emergency Medicine; Nurse Practitioner Acute Care; Physician Assistant; ADMIT Internal Medicine
DX: D68.32 Hemorrhagic disorder due to extrinsic circulating anticoagulants (principal); D62 Acute posthemorrhagic anemia; D69.6 Thrombocytopenia, unspecified; E87.6 Hypokalemia; I25.10 Atherosclerotic heart disease of native coronary artery without angina pectoris; I10 Essential (primary) hypertension; J44.9 Chronic obstructive pulmonary disease, unspecified; T45.515A Adverse effect of anticoagulants, initial encounter; K21.9 Gastro-esophageal reflux disease without esophagitis; I25.2 Old myocardial infarction; Z88.6 Allergy status to analgesic agent; Z88.0 Allergy status to penicillin; Z91.013 Allergy to seafood; Z91.09 Other allergy status, other than to drugs and biological substances; N40.0 Benign prostatic hyperplasia without lower urinary tract symptoms; I48.0 Paroxysmal atrial fibrillation
CPT/HCPCS: 36415; 73201; 80053; 84484; 85025; 85027; 85610; 85730; 93971; 94640; 94664; 94760; 96365-59; 96375-59; 96376; 99285-25; A9270; G0378; J2405; J3010; J3430; Q9967

== ENCOUNTER 2023-06-21 09:49 | Emergency (ER) | payer OTHER ==
[~2023-06-21] VITALS: Ht 182.9 cm; Wt 95.2 kg
[2023-06-21 10:31] LABS: BASOPHILS ABSOLUTE AUTO 0.02 K/mm3 (0.00-0.23); BASOPHILS PERCENT AUTO 0 % (0-2); EOSINOPHILS ABSOLUTE AUTO 0.43 K/mm3 (0.00-0.68); EOSINOPHILS PERCENT AUTO 7 % (0-6); Hematocrit 41.4 % (37.0-53.0); IMMATURE GRAN ABSOLUTE AUTO 0.02 K/mm3 (0.00-0.10); IMMATURE GRAN PERCENT AUTO 0 % (0-1); LYMPHOCYTES ABSOLUTE AUTO 1.14 K/mm3 (0.84-5.20); LYMPHOCYTES PERCENT AUTO 18 % (21-46); MONOCYTES ABSOLUTE AUTO 0.39 K/mm3 (0.16-1.47); MONOCYTES PERCENT AUTO 6 % (4-13); Mean Corpuscular HGB 32.8 pg (26.0-34.0); Mean Corpuscular HGB Conc 33.8 g/dL (31.5-36.5); Mean Corpuscular Volume 97 fL (80-100); Mean Platelet Volume 8.5 fL (9.1-12.4); NEUTROPHILS ABSOLUTE AUTO 4.49 K/mm3 (1.96-9.15); NEUTROPHILS PERCENT AUTO 69 % (41-73); Platelet Count 124 K/mm3 (150-400); RDW Coefficient Variation 13.3 % (11.7-14.2); RDW Standard Deviation 47.6 fL (35.1-46.3); Red Blood Cell Count 4.27 M/mm3 (4.30-5.90); White Blood Cell Count 6.49 K/mm3 (4.00-11.30)
[2023-06-21 10:50] LABS: Albumin, Blood 3.7 g/dL (3.4-5.0); Albumin/Globulin Ratio 1.2 (0.8-1.8); Bilirubin, Total 0.4 mg/dL (0.1-1.0); Bun/Creatinine Ratio 21.6 (12.0-20.0); Calcium, Blood 8.9 mg/dL (8.5-10.1); Creatinine, Blood 0.83 mg/dL (0.60-1.20); Potassium, Blood 3.8 mmol/L (3.5-5.5); Total Protein, Blood 6.7 g/dL (6.4-8.2)
[2023-06-21 16:47] VITALS: BP 183/96
== END 2023-06-21 16:26 | disposition home or self-care (01) ==
LOC: ER 09:49
PROVIDERS: Student in an Organized Health Care Education/Training Program
DX: R07.9 Chest pain, unspecified (principal); I25.10 Atherosclerotic heart disease of native coronary artery without angina pectoris; I10 Essential (primary) hypertension; I48.20 Chronic atrial fibrillation, unspecified; I25.2 Old myocardial infarction; J44.9 Chronic obstructive pulmonary disease, unspecified; Z91.013 Allergy to seafood; Z88.0 Allergy status to penicillin; Z88.8 Allergy status to other drugs, medicaments and biological substances; Z88.5 Allergy status to narcotic agent; Z88.6 Allergy status to analgesic agent; Z79.01 Long term (current) use of anticoagulants; Z79.899 Other long term (current) drug therapy
CPT/HCPCS: 71046; 80053; 83690; 83880; 84484; 85025; 93005; 93010; 96374; 99285-25

== ENCOUNTER 2024-04-29 22:48 | Inpatient (IN) | payer OTHER ==
[~2024-04-29] VITALS: Ht 177.8 cm; Wt 107.1 kg
[~2024-04-29 22:48] MED LIST changes: -COMBIVENT RESPIM4 G1; +FISH OIL 1,0001 EA10 PO; -FISH OIL 1,2001 EAC7; +ISOSORBIDE MONO PO; -Isosorbide Mono30 MG PO; +Lasix20 MG PO
[2024-04-29 23:20] LABS: BASOPHILS ABSOLUTE AUTO 0.02 K/mm3 (0.00-0.23); BASOPHILS PERCENT AUTO 0 % (0-2); EOSINOPHILS ABSOLUTE AUTO 0.17 K/mm3 (0.00-0.68); EOSINOPHILS PERCENT AUTO 2 % (0-6); Hematocrit 42.5 % (37.0-53.0); Hemoglobin 14.5 g/dL (13.5-17.5); IMMATURE GRAN ABSOLUTE AUTO 0.02 K/mm3 (0.00-0.10); IMMATURE GRAN PERCENT AUTO 0 % (0-1); LYMPHOCYTES ABSOLUTE AUTO 1.89 K/mm3 (0.84-5.20); LYMPHOCYTES PERCENT AUTO 26 % (21-46); MONOCYTES ABSOLUTE AUTO 0.52 K/mm3 (0.16-1.47); MONOCYTES PERCENT AUTO 7 % (4-13); Mean Corpuscular HGB 32.7 pg (26.0-34.0); Mean Corpuscular HGB Conc 34.1 g/dL (31.5-36.5); Mean Corpuscular Volume 96 fL (80-100); Mean Platelet Volume 8.6 fL (9.1-12.4); NEUTROPHILS ABSOLUTE AUTO 4.75 K/mm3 (1.96-9.15); NEUTROPHILS PERCENT AUTO 64 % (41-73); Platelet Count 147 K/mm3 (150-400); RDW Coefficient Variation 13.5 % (11.7-14.2); RDW Standard Deviation 47.8 fL (35.1-46.3); Red Blood Cell Count 4.44 M/mm3 (4.30-5.90); White Blood Cell Count 7.37 K/mm3 (4.00-11.30)
[2024-04-29 23:45] LABS: Prothrombin Time Results 44.4 Sec (9.7-11.5)
[2024-04-29 23:48] LABS: International Normalized Ratio 4.65
[2024-04-29 23:49] LABS: Albumin, Blood 3.7 g/dL (3.4-5.0); Albumin/Globulin Ratio 1.1 (0.8-1.8); Bilirubin, Total 0.5 mg/dL (0.1-1.0); Bun/Creatinine Ratio 21.2 (12.0-20.0); Creatinine, Blood 0.85 mg/dL (0.60-1.20); Globulin, Blood 3.5 g/dL (2.2-4.0); Potassium, Blood 3.7 mmol/L (3.5-5.5); Total Protein, Blood 7.2 g/dL (6.4-8.2)
[2024-04-30] VITALS (9 sets, daily range): BP systolic 156–183; BP diastolic 71–111
[2024-04-30] MEDS ORDERED: Nitroglycerin 0.4 MG SUBL SL PRN (00:25)
[2024-04-30] MEDS ORDERED: Pantoprazole Sodium 40 MG Injection IV ONE (00:25)
[2024-04-30] MEDS ORDERED: Lidocaine 2% Viscous Soln 15 ML UDC PO ONE (00:25)
[2024-04-30] MEDS ORDERED: Mag Hydrox/AL Hydrox/Simeth 30 ML UDC PO ONE (00:25)
[2024-04-30] MEDS ORDERED: Acetaminophen 325 MG TABLET PO PRN (03:00)
[2024-04-30] MEDS ORDERED: Bisacodyl 10 MG Supp PR PRN (03:00)
[2024-04-30] MEDS ORDERED: Cyclobenzaprine HCl 10 MG Tab PO PRN (03:05)
[2024-04-30] MEDS ORDERED: Magnesium Hydroxide Conc 10 ML UDC PO PRN (03:05)
[2024-04-30] MEDS ORDERED: Ipratropium/Albuterol SulF 2.5-0.5MG/3 ML Amp INH PRN ×2 (04:20→10:40)
--- NOTE | 2024-04-30 04:24 | NUR ---
ARRIVAL NOTE PT ARRIVED TO SURGICAL FLOOR FROM ER. PT DENIES CHEST PAIN/PRESSURE. PT COMPLAINS OF ABD PAIN, CHRONIC FROM HERNIA. VSS. PT RESTING IN BED, A/O X4. SBA FROM RNEY TO BED. EDUCATED DRYWALL FOREMAN LIGHT.
[2024-04-30] MEDS ORDERED: METO100 PO (05:05)
[2024-04-30] MEDS ORDERED: WARF5 PO (05:13)
--- NOTE | 2024-04-30 05:13 | NUR ---
TELE PLACED AND NOTED SINUS URIEL @ 59.PT CURRENTLY IN NO DISTRESS.
[2024-04-30] MEDS ORDERED: CLOP75 PO (05:15)
[2024-04-30 05:37] LABS: BASOPHILS ABSOLUTE AUTO 0.01 K/mm3 (0.00-0.23); BASOPHILS PERCENT AUTO 0 % (0-2); EOSINOPHILS ABSOLUTE AUTO 0.15 K/mm3 (0.00-0.68); EOSINOPHILS PERCENT AUTO 2 % (0-6); Hematocrit 43.3 % (37.0-53.0); Hemoglobin 14.5 g/dL (13.5-17.5); IMMATURE GRAN ABSOLUTE AUTO 0.01 K/mm3 (0.00-0.10); IMMATURE GRAN PERCENT AUTO 0 % (0-1); LYMPHOCYTES ABSOLUTE AUTO 1.81 K/mm3 (0.84-5.20); LYMPHOCYTES PERCENT AUTO 28 % (21-46); MONOCYTES ABSOLUTE AUTO 0.68 K/mm3 (0.16-1.47); MONOCYTES PERCENT AUTO 11 % (4-13); Mean Corpuscular HGB 32.2 pg (26.0-34.0); Mean Corpuscular HGB Conc 33.5 g/dL (31.5-36.5); Mean Corpuscular Volume 96 fL (80-100); Mean Platelet Volume 8.4 fL (9.1-12.4); NEUTROPHILS ABSOLUTE AUTO 3.78 K/mm3 (1.96-9.15); NEUTROPHILS PERCENT AUTO 59 % (41-73); Platelet Count 127 K/mm3 (150-400); RDW Coefficient Variation 13.6 % (11.7-14.2); RDW Standard Deviation 48.1 fL (35.1-46.3); Red Blood Cell Count 4.51 M/mm3 (4.30-5.90); White Blood Cell Count 6.44 K/mm3 (4.00-11.30)
[2024-04-30 06:00] LABS: Albumin, Blood 3.7 g/dL (3.4-5.0); Albumin/Globulin Ratio 1.1 (0.8-1.8); Bilirubin, Total 0.6 mg/dL (0.1-1.0); Bun/Creatinine Ratio 24.2 (12.0-20.0); Calcium, Blood 8.7 mg/dL (8.5-10.1); Creatinine, Blood 0.75 mg/dL (0.60-1.20); Globulin, Blood 3.4 g/dL (2.2-4.0); Magnesium, Blood 1.7 mg/dL (1.6-2.4); Phosphorus, Blood 2.7 mg/dL (2.5-4.9); Potassium, Blood 3.3 mmol/L (3.5-5.5); Total Protein, Blood 7.1 g/dL (6.4-8.2)
--- NOTE | 2024-04-30 06:09 | NUR ---
SHIFT SUMMARY PT IS A/O X4, SBA TO AMBULATE. USING URINAL TO VOID. PT ADMITTED DURING SHIFT FOR OBS, CAME INTO ER W/ CHEST PAIN. PT CURRENTLY DENIES CHEST PAIN/PRESSURE AND SOB. PT DOES REPORT ABD PAIN DUE TO HERNIA THAT HE TAKES HYDROCODONE FOR CHRONICALLY. VSS, PT ON TELE, SINUS URIEL. NO ACUTE CARDIAC EVENTS NOTED. PT CURRENTLY RESTING IN ROOM, TOLERATING PO FLUIDS. O2 SATS >92% ON RA. CALL LIGHT IN REACH. PT INSTRUCTED TO CALL IF CHEST PAIN/PRESSURE RETURNS.
[2024-04-30] MEDS ORDERED: HYDROCODONE-AC1 EA10 PO (06:14)
--- NOTE | 2024-04-30 06:18 | NUR ---
PT C/O PAIN TO [facility] HERNIA SITE.PT REPORTS TAKING VICODIN DAILY AT HOME ALTHOUGH LISTS TYLENOL ALLERGY.PT STATES HE "LIMITS"TYLENOL AMNTS. I CALLED DR LARA AND RECEIVED ORDER.
[2024-04-30] MEDS ORDERED: HYDROcodone 5-APAP 325 TAB PO PRN ×2 (06:20→13:00)
[2024-04-30] MEDS ORDERED: Sennosides 8.6 MG Tab PO SCH (09:00)
[2024-04-30] MEDS ORDERED: Docusate Sodium 100 MG Cap PO SCH (09:00)
[2024-04-30] MEDS ORDERED: Enoxaparin 40 MG/0.4 ML SYR SC SCH (09:00)
[2024-04-30] MEDS ORDERED: Isosorbide Mononitrate 60 MG TABCR PO SCH (09:00)
[2024-04-30] MEDS ORDERED: Metoprolol Tartrate 50 MG Tab PO SCH ×2 (09:00→21:00)
[2024-04-30] MEDS ORDERED: HydrALAZINE HCl 25 MG Tab PO SCH (09:00)
[2024-04-30] MEDS ORDERED: Furosemide 40 MG Tab PO SCH (09:00)
[2024-04-30] MEDS ORDERED: Potassium Chloride 20 MEQ TabCR PO ONE (09:00)
--- NOTE | 2024-04-30 16:21 | NUR ---
SHIFT SUMMARY PT REPORTS PAIN HAS STAYED IN HIS STOMACH AND RADIATING TO THE BACK. REPORTS IMPROVEMENT WITH MEDICATION PER EMAR BUT MOSTLY CONSTANT. AFIB ON TELE THIS AM URIEL TO THE UPPER 30'S, EKG DONE PER ORDERS SHOW AFIB. CONVERTED TO SR AT 1124. DENIES ANY FURTHER PAIN IN CHEST. DENIED SOB OR ANY NUMBNESS TO ARMS. ABLE TO STAND AND TRANSFER TO WHEELCHAIR WELL FOR IMAGING. TOLERATING DIET. PLAN IS FOR PATIENT TO HAVE SECOND PART OF STRESS TEST TOMORROW. NO CAFFEINE AFTER 1900 AND NPO AT MIDNIGHT. PT AGREEABLE TO PLAN
[2024-04-30] MEDS ORDERED: Tamsulosin HCl 0.4 MG Cap PO SCH (21:00)
--- NOTE | 2024-05-01 04:20 | NUR ---
SHIFT SUMMARY PT ABLE TO REST MOST OF SHIFT. DENIES CHEST PAIN/PRESSURE, HOWEVER HAS COMPLAINED OF EPIGASTRIC PAIN TREATED W/ PO PAIN PILLS W/ TOLERABLE RESULTS. PT STATES THIS PAIN HAS BEEN BOTHERING HIM FOR SEVERAL MONTHS BUT SEEMS TO BE WORSENING WITHIN THE PAST WEEK. TELE IN PLACE, PT CONVERTED TO AFIB @ 71 AT 2105 AND THEN BACK TO SR LATER IN SHIFT. PT HAS HX OF AFIB. NO URIEL OR TACHYCARDIC EVENTS THIS SHIFT. MEDICATED FOR HTN PER EMAR. VSS. PT VOIDING APPROPRIATELY. USING CALL LIGHT APPROPRIATELY.
[2024-05-01 05:20] VITALS: BP 170/79
--- NOTE | 2024-05-01 05:35 | NUR ---
CHANGE OF RHYTHM THIS RN RECIEVED CALL FROM TELE @ 0534 NOTIFYING THAT PT HAD SWITCHED FROM SINUS RHYTHM TO AFLUTTER WITH A RATE OF 59. PT ASYMPTOMATIC, DENIES CHEST PAIN/PRESSURE. LEFT CALL W/ DR LARA, NO ANSWER. RECIEVED CALL FROM PROJECT SCIENTIST NOTIFYING THAT PT HAD SWITCHED BACK INTO SINUS RHYTHM W/ RATE OF 58 @ 0533. RECIEVED CALL BACK FROM DR. LARA, NOTIFIED OF CHANGE IN RYTHYM, NO FURTHER ORDERS RECIEVED.
[2024-05-01 05:48] LABS: International Normalized Ratio 2.11; Prothrombin Time Results 21.4 Sec (9.7-11.5)
[2024-05-01 07:18] VITALS: BP 147/82
[2024-05-01] MEDS ORDERED: Caffeine Citrated 60 MG/3 ML Vial ONE (07:49)
[2024-05-01] MEDS ORDERED: Regadenoson 0.4 MG/5 ML SYRINGE ONE (07:49)
[2024-05-01 14:46] VITALS: BP 90/57
[2024-05-01 15:04] VITALS: BP 128/73
[2024-05-01 15:41] LABS: Anti-Xa UFH, PHA Monitoring <0.10 IU/mL
--- NOTE | 2024-05-01 17:17 | NUR ---
SHIFT SUMMARY PT HAS REPORTED EPIGASTRIC PAIN SIGNIFICANTLY IMPROVED DURING TODAYS SHIFT. DENIED ANY FURTHER CHEST PAIN OR SHORTNESS OF BREATH. SECOND PART OF HIS STRESS TEST FINISHED TODAY, CARDIOLOGY CONSULTED AND PLAN IS FOR A CARDIAC CATH IN THE AM. NPO AT MIDNIGHT. PT EDUCATED AND AGREEABLE TO PLAN. CURRENTLY TOLERATING DIET WELL. UP TO CHAIR FOR MOST OF SHIFT. ECHO DONE THIS AFTERNOON WELL.
[2024-05-01] MEDS ORDERED: Heparin Sodium,Porcine/0.5 NS 500 ML IV SCH (17:30)
[2024-05-01 19:37] VITALS: BP 149/92
[2024-05-02] VITALS (8 sets, daily range): BP systolic 124–164; BP diastolic 62–87
[2024-05-02 02:46] LABS: BASOPHILS ABSOLUTE AUTO 0.01 K/mm3 (0.00-0.23); BASOPHILS PERCENT AUTO 0 % (0-2); EOSINOPHILS ABSOLUTE AUTO 0.18 K/mm3 (0.00-0.68); EOSINOPHILS PERCENT AUTO 2 % (0-6); Hematocrit 44.8 % (37.0-53.0); IMMATURE GRAN ABSOLUTE AUTO 0.02 K/mm3 (0.00-0.10); IMMATURE GRAN PERCENT AUTO 0 % (0-1); LYMPHOCYTES PERCENT AUTO 29 % (21-46); MONOCYTES ABSOLUTE AUTO 0.65 K/mm3 (0.16-1.47); MONOCYTES PERCENT AUTO 8 % (4-13); Mean Corpuscular HGB 32.3 pg (26.0-34.0); Mean Corpuscular HGB Conc 33.5 g/dL (31.5-36.5); Mean Corpuscular Volume 97 fL (80-100); Mean Platelet Volume 8.4 fL (9.1-12.4); NEUTROPHILS ABSOLUTE AUTO 4.82 K/mm3 (1.96-9.15); NEUTROPHILS PERCENT AUTO 60 % (41-73); Platelet Count 127 K/mm3 (150-400); RDW Coefficient Variation 13.7 % (11.7-14.2); RDW Standard Deviation 48.7 fL (35.1-46.3); Red Blood Cell Count 4.64 M/mm3 (4.30-5.90); White Blood Cell Count 7.98 K/mm3 (4.00-11.30)
[2024-05-02 03:01] LABS: Anti-Xa UFH, PHA Monitoring 0.26 IU/mL; International Normalized Ratio 1.47; Prothrombin Time Results 15.3 Sec (9.7-11.5)
[2024-05-02 03:06] LABS: Albumin, Blood 3.7 g/dL (3.4-5.0); Albumin/Globulin Ratio 1.1 (0.8-1.8); Bilirubin, Total 0.7 mg/dL (0.1-1.0); Bun/Creatinine Ratio 21.3 (12.0-20.0); Creatinine, Blood 0.7 mg/dL (0.60-1.20); Globulin, Blood 3.4 g/dL (2.2-4.0); Magnesium, Blood 2.2 mg/dL (1.6-2.4); Phosphorus, Blood 3.2 mg/dL (2.5-4.9); Potassium, Blood 3.3 mmol/L (3.5-5.5); Total Protein, Blood 7.1 g/dL (6.4-8.2)
[2024-05-02] MEDS ORDERED: Dose Adjust by Pharmacy XX STA (03:33)
--- NOTE | 2024-05-02 04:21 | NUR ---
SHIFT SUMMARY PT IS A/O X4, SLEPT MOST OF THE NIGHT. VSS. NO COMPLAINTS OF CHEST PAIN/SOB THIS SHIFT. PT REPORTS IMPROVEMENT IN ABD PAIN FROM PRIOR NOC SHIFT BUT DID HAVE TO BE MEDICATED ONCE FOR PAIN W/ TOLERABLE RESULTS. IV HEPARIN RUNNING PER EMAR. PT CONVERTED FROM SINUS TO AFIB W/ CONTROLLED RATE. TELE ON. NO OTHER CARDIAC EVENTS THIS SHIFT. CALL LIGHT IN REACH. NPO SINCE 0000 FOR CARDIAC CATH IN AM.
[2024-05-02] MEDS ORDERED: NS 1,000 ML IV ONE ×2 (08:06→08:33)
[2024-05-02] MEDS ORDERED: NS 250 ML IV ONE (08:06)
[2024-05-02] MEDS ORDERED: Nitroglycerin 2 MG/20 ML BTL ONE (08:06)
[2024-05-02] MEDS ORDERED: Verapamil HCL 2.5 MG/ML 2ML Injection ONE (08:06)
[2024-05-02] MEDS ORDERED: Heparin Sodium 1000 Units/ML 10ML MDV ONE ×2 (08:06→08:46)
[2024-05-02] MEDS ORDERED: Midazolam HCl 1MG / ML 2ML Vial ONE (08:32)
[2024-05-02] MEDS ORDERED: FentaNYL Citrate 50 MCG/ML 2 ML Injection ONE (08:32)
--- NOTE | 2024-05-02 08:34 | NUR ---
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 PLAN IS FOR PATIENT TO GO TO PCU 18 AFTER.
[2024-05-02] MEDS ORDERED: FURO40 PO (13:51)
[2024-05-02] MEDS ORDERED: RANO500T PO (14:01)
[2024-05-02] MEDS ORDERED: ENOX100I SC (15:00)
--- NOTE | 2024-05-02 15:53 | NUR ---
DISCHARGE PT TO PCU 18 FROM INDUSTRIAL PLANT CUSTODIAN. RIGHT RADIAL ACCESS. WNL. DENIES NUMBNESS OR TINGLING, CAP REFILL <3 SEC. NO BLEEDING OR HEMATOMA NOTED. PT DENIES CHEST PAIN AT THIS TIME. REPORTS MILD EPIGASTRIC PAIN. LUNGS CLEAR. SR, RATE 60'S. BP STABLE. AIR REMOVED, HEMOSTATIS ACHIEVED. NO HEMATOMA, BLEEDING OR ABNORMALITIES NOTED. CHG DRESSING AND ARM BOARD IN PLACE. D/C INSTRUCTIONS REVIEWED c PT, VERBALIZED UNDERSTANDING. PT TO MAKE F/U APPT c CARDIOLOGY AND SURGERY. WILL DRILLER OPERATOR [facility] AT [place]. REVIEWED RADIAL ACCESS SITE INSTRUCTIONS. CALL PLACED TO WILLA PETTY.
[2024-05-02] MEDS ORDERED: Warfarin Sodium 7.5 MG Tab PO ONE (18:00)
== END 2024-05-02 16:04 | disposition home or self-care (01) | DRG 286 ==
LOC: ER 22:48 → SURS 22:49 → PCU 05-02 09:18
PROVIDERS: Family Medicine; Hospitalist; Student in an Organized Health Care Education/Training Program; ADMIT Internal Medicine
PROC: 4A023N7 Measurement of Cardiac Sampling and Pressure, Left Heart, Percutaneous Approach (ICD-10-PCS; principal; 2024-05-02)
PROC: B2111ZZ Fluoroscopy of Multiple Coronary Arteries using Low Osmolar Contrast (ICD-10-PCS; 2024-05-02)
DX: T82.855A Stenosis of coronary artery stent, initial encounter (principal); I50.33 Acute on chronic diastolic (congestive) heart failure; I25.110 Atherosclerotic heart disease of native coronary artery with unstable angina pectoris; I48.20 Chronic atrial fibrillation, unspecified; R00.1 Bradycardia, unspecified; N40.0 Benign prostatic hyperplasia without lower urinary tract symptoms; Z98.890 Other specified postprocedural states; Z88.5 Allergy status to narcotic agent; Z88.8 Allergy status to other drugs, medicaments and biological substances; Z88.0 Allergy status to penicillin; Z91.013 Allergy to seafood; Z95.2 Presence of prosthetic heart valve; Z95.1 Presence of aortocoronary bypass graft; Z79.02 Long term (current) use of antithrombotics/antiplatelets; Z79.891 Long term (current) use of opiate analgesic; Z79.899 Other long term (current) drug therapy; Z79.01 Long term (current) use of anticoagulants; E78.5 Hyperlipidemia, unspecified; I11.0 Hypertensive heart disease with heart failure; J44.9 Chronic obstructive pulmonary disease, unspecified; I25.2 Old myocardial infarction; K21.9 Gastro-esophageal reflux disease without esophagitis; Z95.0 Presence of cardiac pacemaker; Z89.111 Acquired absence of right hand; Z87.891 Personal history of nicotine dependence; F10.90 Alcohol use, unspecified, uncomplicated
CPT/HCPCS: 36415; 71046; 74176; 76937; 78452; 80053; 83690; 83735; 83880; 84100; 84484; 85025; 85520; 85610; 85730; 93005; 93010; 93017; 93306; 93454; 94640; 94664; 94760; 96374; 99152; 99285-25; A9270; A9500; C1769; C1894; C9113; G0378; J0706; J1644; J2250; J2785; J3010; J7030; J7050; Q9967

== ENCOUNTER 2024-11-10 06:03 | Day surgery (SDC) | payer OTHER ==
[~2024-11-10] VITALS: Ht 177.8 cm; Wt 112.7 kg
[~2024-11-10 06:03] MED LIST changes: +CRESTOR PO; +ENOX100I SC; +FURO40 PO; +HYDCHL12.5 PO; +HYDROCODONE-AC1 EA10 PO; +METO100 PO; +NORVASC5 MG PO; +PRALUENT P75 MG/1 ML SC; +RANO500T PO; +SIME80CH PO
[2024-11-10] MEDS ORDERED: CeFAZolin Sodium 2,000 MG in NS 100 ML IV SCH (06:15)
[2024-11-10] MEDS ORDERED: Lactated Ringer's 1,000 ML IV SCH (06:15)
[2024-11-10 06:42] VITALS: BP 139/89
[2024-11-10] MEDS ORDERED: Ondansetron HCl 2 MG / ML 2ML Vial ONE (06:43)
[2024-11-10] MEDS ORDERED: propofoL 0 ML IV ONE (06:43)
[2024-11-10] MEDS ORDERED: FentaNYL Citrate 50 MCG/ML 2 ML Injection ONE (06:43)
[2024-11-10] MEDS ORDERED: Glycopyrrolate 0.2 MG/ML 5ML VIAL ONE (06:43)
[2024-11-10] MEDS ORDERED: Dexamethasone Sod Phos 10 MG/ML 1ML VIAL ONE (06:43)
[2024-11-10] MEDS ORDERED: CeFAZolin Sodium 2,000 MG VIAL ONE (06:52)
--- NOTE | 2024-11-10 06:56 | NUR ---
Wheelchaired into Day Surgery. History, Chart, Medications and Allergies reviewed before start of procedure. Pre-Op teaching done. Pt verbalizes understanding. Patient States Post-Procedure ride home has been arranged.
--- NOTE | 2024-11-10 07:26 | NUR ---
DR NORMAN AT BEDSIDE WITH PATIENT AND CANCELLED SURGERY DUE TO SEVERE ABDOMINAL BRUISING FROM LOVENOX SHOTS. PT WILL RESUME COUMADIN AND DR NORMAN'S OFFICE WILL RESCHEDULE SURGERY.
--- NOTE | 2024-11-10 07:41 | NUR ---
Discharge to home via wheelchair. Instructed patient and daughter for patient to restart coumadin.
[2024-11-10] MEDS ORDERED: Rocuronium Bromide 10 MG/ML 5ML Injection IV ONE (08:37)
[2024-11-10] MEDS ORDERED: Phenylephrine HCl 100 MCG/ML-NS 10MLSYR (1MG/10ML) ONE (08:37)
== END 2024-11-10 07:36 | disposition home or self-care (01) ==
LOC: ORSCMMR 06:03 → ORD 07:30 → ORSCMMR 07:30
DX: K42.9 Umbilical hernia without obstruction or gangrene (principal); Z53.9 Procedure and treatment not carried out, unspecified reason
CPT/HCPCS: J0690; J1100; J2371; J2405; J2704; J3010; J7120

== ENCOUNTER 2025-01-03 07:40 | Day surgery (SDC) | payer OTHER ==
[~2025-01-03] VITALS: Ht 177.8 cm; Wt 114.2 kg
[2025-01-03] VITALS (17 sets, daily range): BP systolic 115–160; BP diastolic 68–90
[~2025-01-03 07:40] MED LIST changes: +ASPIR 8181 M1 PO; +Crestor40 MG PO; +Norco 5-325 Ta1 EACH PO
[2025-01-03] MEDS ORDERED: Lactated Ringer's 1,000 ML IV SCH (08:20)
[2025-01-03] MEDS ORDERED: CeFAZolin Sodium 2,000 MG in NS 100 ML IV SCH (08:35)
--- NOTE | 2025-01-03 08:49 | NUR ---
PT TO UNIT VIA W/C. ABLE TO STAND ON SCALE WITH MINIMAL ASSISTANCE AND USES CANE. ABLE TO WALK SLOWLY TO GURN WITH USE OF CANE. History, Chart, Medications and Allergies reviewed before start of procedure. Pre-Op teaching done. Pt verbalizes understanding. Patient States Post-Procedure ride home has been arranged WITH DAUGHTER. PT REPORTS GLASSES AND DENTURES LEFT AT HOME. CANE AND BELONGINGS PLACED UNDER GURN. ONE SILVER RING REMOVED AND PLACED IN BAGGIE THEN IN PT'S PANT POCKET WITH PT BOSS MINER IT. W[place]DING BAND REMAINS IN PLACE, REFUSAL FORM SIGNED. PT INFORMED OF CONCERNS WITH LEAVING IT IN PLACE. HE DENIES ANY FURTHER QUESTIONS. COBAN PLACED OVER WEDDING BAND.
[2025-01-03] MEDS ORDERED: CeFAZolin Sodium 2,000 MG VIAL ONE (08:53)
[2025-01-03] MEDS ORDERED: Bupivacaine 0.5% HCl 5 MG/ML 30MLVIAL ONE (08:53)
[2025-01-03] MEDS ORDERED: Dexamethasone Sod Phos 10 MG/ML 1ML VIAL ONE (09:00)
[2025-01-03] MEDS ORDERED: Rocuronium Bromide 10 MG/ML 5ML Injection IV ONE (09:00)
[2025-01-03] MEDS ORDERED: Phenylephrine HCl 100 MCG/ML-NS 10MLSYR (1MG/10ML) ONE (09:00)
[2025-01-03] MEDS ORDERED: Ondansetron HCl 2 MG / ML 2ML Vial ONE (09:00)
[2025-01-03] MEDS ORDERED: propofoL 20 ML IV ONE (09:00)
[2025-01-03] MEDS ORDERED: FentaNYL Citrate 50 MCG/ML 2 ML Injection ONE ×2 (09:01→10:48)
[2025-01-03] MEDS ORDERED: Sugammadex Sodium 200 MG/2ML SDV (100 MG/ML) ONE (09:01)
[2025-01-03] MEDS ORDERED: Droperidol 5 mg/2 ml Vial IV PRN (09:50)
[2025-01-03] MEDS ORDERED: FentaNYL Citrate 50 MCG/ML 2 ML Injection IV PRN ×3 (09:50)
[2025-01-03] MEDS ORDERED: Labetalol HCL 5 MG/ML 4ML Injection (Single Dose) IV PRN (09:55)
[2025-01-03] MEDS ORDERED: HYDROcodone 5-APAP 325 TAB PO PRN (11:15)
--- NOTE | 2025-01-03 11:20 | NUR ---
REPORT RECEIVED FROM CANDY PARKS. VSS. PT ON RA. PT A&OX4. PT ABLE TO REPOSITION SELF IN BED. PT REQUESTING PO FOOD AND FLUIDS AND TOLERATING THEM WELL. PT HAS GAUZE/TEGADERM TO UMBILICAL THAT IS CDI. PT ALSO HAS ABDOMINAL BINDER IN PLACE THAT IS CDI. PT REPORTS 5/10 ABDOMINAL DISCOMFORT. PT DENIES NAUSEA OR OTHER DISCOMFORTS.
[2025-01-03] MEDS ORDERED: Ipratropium/Albuterol SulF 2.5-0.5MG/3 ML Amp INH ONE (12:10)
--- NOTE | 2025-01-03 13:43 | NUR ---
1315 DC INSTRUCTS GIVEN PT VERBALIZED UNDERSTANDING
== END 2025-01-03 13:30 | disposition home or self-care (01) ==
LOC: ORSCMMR 07:40 → ORD 09:00 → ORSCMMR 13:30
PROVIDERS: Surgery
PROC: 0WUF4JZ Supplement Abdominal Wall with Synthetic Substitute, Percutaneous Endoscopic Approach (ICD-10-PCS; principal; 2025-01-03 09:00)
DX: K42.0 Umbilical hernia with obstruction, without gangrene (principal); I10 Essential (primary) hypertension; I25.2 Old myocardial infarction; J44.89 Other specified chronic obstructive pulmonary disease; K21.9 Gastro-esophageal reflux disease without esophagitis; K76.0 Fatty (change of) liver, not elsewhere classified; N40.0 Benign prostatic hyperplasia without lower urinary tract symptoms; I25.10 Atherosclerotic heart disease of native coronary artery without angina pectoris; Z79.899 Other long term (current) drug therapy; Z79.02 Long term (current) use of antithrombotics/antiplatelets; Z79.01 Long term (current) use of anticoagulants; Z79.82 Long term (current) use of aspirin; E78.5 Hyperlipidemia, unspecified
CPT/HCPCS: A9270; C1781; J0690; J1100; J2371; J2405; J2704; J3010; J7120